=== PATIENT | male | born 1985 ===

== ENCOUNTER 2018-01-27 03:48 | Emergency (ER) | payer OTHER ==
[2018-01-27 04:00] VITALS: TEMP 98
--- NOTE | 2018-01-27 04:24 | ED PDOC ---
HPI: Psych/Substance Abuse Time Seen by Provider: 01/27/18 03:57 Chief Complaint (Nursing): Alcohol Ingestion Chief Complaint (Provider): Alcohol Ingestion History Per: Patient History/Exam Limitations: no limitations Onset/Duration Of Symptoms: Hrs Current Symptoms Are (Timing): Still Present Suicide/Self Injury Attempted (Context): None Modifying Factor(s): Alcohol Additional Complaint(s): 32 year old male brought in by EMS and [place] [employer] for evaluation for public intoxication. Patient was found sleeping on the street Patient is a poor historian. Denies any complaints at this time. Past Medical History Reviewed: Historical Data, Nursing Documentation, Vital Signs Vital Signs: Last Vital Signs Temp 98.0 F 01/27/18 03:58 Pulse 84 01/27/18 03:58 Resp 16 01/27/18 03:58 BP 124/71 01/27/18 03:58 Pulse Ox 96 01/27/18 03:58 - Medical History PMH: No Chronic Diseases - Surgical History Surgical History: No Surg Hx - Family History Family History: States: Unknown Family Hx - Immunization History Hx Influenza Vaccination: No Hx Pneumococcal Vaccination: No - Home Medications Home Medications: Ambulatory Orders Medication Instructions Recorded No Known Home Med 05/26/17 - Allergies Allergies/Adverse Reactions: Allergies Allergy/AdvReac Type Severity Reaction Status Date / Time No Known Allergies Allergy Verified 05/26/17 21:07 Review of Systems Review Of Systems: ROS cannot be obtained secondary to pt's inabilty to answer questions. Physical Exam - Reviewed Nursing Documentation Reviewed: Yes Vital Signs Reviewed: Yes - Physical Exam Appears: Positive for: Non-toxic, No Acute Distress Head Exam: Positive for: ATRAUMATIC, NORMOCEPHALIC Skin: Positive for: Normal Color, Warm, Dry Eye Exam: Positive for: Normal appearance, EOMI, PERRL ENT: Positive for: Normal ENT Inspection Neck: Positive for: Normal, Painless ROM, Supple Cardiovascular/Chest: Positive for: Regular Rate, Rhythm. Negative for: Murmur Respiratory: Positive for: Normal Breath Sounds Gastrointestinal/Abdominal: Positive for: Normal Exam, Soft. Negative for: Tenderness Back: Positive for: Normal Inspection Extremity: Positive for: Normal ROM. Negative for: Pedal Edema, Deformity Neurologic/Psych: Positive for: Alert, Oriented, Gait (unsteady), Other ( slurred speech) - ECG O2 Sat by Pulse Oximetry: 96 (RA) Pulse Ox Interpretation: Normal Medical Decision Making Medical Decision Making: Time: 419 Impression: Alcohol Intoxication Plan: -- Patient does not appear clinically sober at this time. Patient presents with an unsteady gait and slurred speech. Scribe Attestation: Documented by Jerrod Penny, acting as a scribe for Dr. Owen Singh MD. Provider Scribe Attestation: All medical record entries made by the Scribe were at my direction and personally dictated by me. I have reviewed the chart and agree that the record accurately reflects my personal performance of the history, physical exam, medical decision making, and the department course for this patient. I have also personally directed, reviewed, and agree with the discharge instructions and disposition. Disposition - Clinical Impression Clinical Impression: Alcohol abuse with intoxication delirium - Patient ED Disposition Is Patient to be Admitted: Transfer of Care Counseled Patient/Family Regarding: Studies Performed, Diagnosis - Disposition Referrals: Alcoholics Anonymous [Outside] [facility] [Outside] Disposition: Transfer of Care Disposition Time: 07:00 Condition: STABLE Instructions: Alcohol Use - When Is Drinking a Problem?, Alcohol Abuse and Alcoholism (DC), Effects of Alcohol on Your Health Patient Signed Over To: Roberto Leach III
--- NOTE | 2018-01-27 07:09 | ED PDOC ---
- ECG O2 Sat by Pulse Oximetry: 96 (RA) Medical Decision Making Medical Decision Makinam received on endorsement pending sobiety [id number] awake, ambulating steady gait, DC from ED Disposition Counseled Patient/Family Regarding: Studies Performed, Diagnosis - Clinical Impression Clinical Impression: Alcohol abuse with intoxication delirium - POA Present On Arrival: None - Disposition Referrals: Alcoholics Anonymous [Outside] [facility] [Outside] Disposition: Routine/Home Disposition Time: 10:21 Condition: STABLE Instructions: Effects of Alcohol on Your Health, Alcohol Abuse and Alcoholism ( DC), Alcohol Use - When Is Drinking a Problem? Forms: [facility] ([place]inamese)
[2018-01-27 10:22] VITALS: BP 132/74; PULSE 70; RESP 18
[2018-01-27 10:30] VITALS: O2SAT 96
== END 2018-01-27 10:25 | disposition home or self-care (01) ==
LOC: H.ER 03:48
DX: F10.121 Alcohol abuse with intoxication delirium (principal)